=== PATIENT | female | born 1995 | race Caucasian/White ===

== ENCOUNTER 2025-09-27 00:45 | Inpatient (IN) | payer OTHER, SELFPAY ==
[2025-09-26 20:50] VITALS: BP 129/73
--- NOTE | 2025-09-26 22:06 | ED.GENMED ---
History of Present Illness
General
Chief Complaint: Fall
Source: patient
Exam Limitations: none
Time Seen by Provider: 09/26/25 21:58
Nursing documentation reviewed up to this point in time: agreed with
History of Present Illness
History of Present Illness:
SEE mdm
Phy Exam
Physical Exam
Physical Exam:
SEE mdm
Course
Orders/Labs/Results
Orders:
Orders
09/26/25 20:56
CR Ankle - Left Min 3 Views Urgent
Reason For Exam: fall
Tib/Fib, Left 2 View [CR Leg Tibia/fibula Left 2 Vw] Urgent
Comment:
Reason For Exam: fall
09/26/25 22:06
Ketorolac [Toradol] 30 mg IV NOW STA
09/26/25 22:08
CT Lower Ext W/o Iv Cont Lt Urgent
Comment:
Reason For Exam: L tibial fx; includet he ankle, ortho request
09/26/25 23:01
HYDROmorphone [Dilaudid] 1 mg IV NOW STA
09/27/25 00:27
Admit/Transfer Patient As Directed
Co-Sign Provider:
Level of Care: Inpatient admission
Assign to:: Medical/Surgical
Physician / Group: Dr. Hayden, Ortho
Diagnosis: Displaced comminuted fracture of shaft of left tibia
Reason for Hospitalization: Displaced comminuted fracture of shaft of left tibia and surgery needed
Expected length of stay greater than two midnights?: Yes
ELOS- Estimated Length of Stay in days: 3
I certify the patient meets the requirements for IP care: Yes
09/27/25 00:28
PRN Pain Medication Management As Directed
May give lesser potent ordered pain med per pt: Yes
preference::
Protocol:: Medication orders for pain may be administered in a
manner that supports deferring to patient preference
when the pt is:
- Requesting an ordered lesser potent pain medication.
Least to most potent pain medications are defined
as: acetaminophen < NSAID < tramadol < opioids
(morphine, oxycodone, hydromorphone).
- Requesting a lesser dose of the same medication IF
ORDERED.
- Requesting a less intrusive route of administration
if both routes are prescribed by the provider (PO <
IV).
09/27/25 00:30
Code Status As Directed
Resuscitation Status: Full Code
09/27/25 00:56
HYDROmorphone [Dilaudid] 0.5 mg IV Q3HPRN PRN
09/27/25 01:35
0.9% Sodium Chloride 1000 ml [Nss] 1,000 ml IV 80 mls/hr
Acetaminophen [Tylenol] 650 mg PO Q4HPRN PRN
Bisacodyl [Dulcolax] 10 mg RECTAL [id number] PRN
Docusate Sodium [Colace] 100 mg PO BID PRN
Docusate W/Senna [Senokot-S] 1 tablet PO BIDPRN PRN
HYDROmorphone [Dilaudid] 0.25 mg IV Q3HPRN PRN
Polyethylene Glycol Powder [Miralax] 17 grams PO DAILYPRN PRN
09/27/25 01:35
Activity As Directed
Activity Level: As Tolerated
Intake/ Output As Directed
Frequency: Per unit guidelines
Pneumatic Compression Sleeves As Directed
Type: Knee high
Vital Signs As Directed
Frequency: Per unit guidelines
DX Deep Vein Thrombosis Video Routine
09/27/25 06:00
EKG [Electrocardiogram (*1)] IN AM
Reason for Study: Other
Other Reason for Exam: Pre op
NPO
Allow oral meds: Yes
Allow clear liquids: No
Basic Metabolic Panel IN AM
Complete Blood Count/No Diff IN AM
09/27/25 18:00
Enoxaparin Sodium [Lovenox] 30 mg SC QPM
09/27/25 20:00
Sennosides [Senokot] 17.2 mg PO BID
Vital Signs
Initial and Last Documented VS:
Initial Vital Signs
Temp Pulse Resp BP Pulse Ox
36.9 C 102 22 129/73 99
09/26/25 20:50 09/26/25 20:50 09/26/25 20:50 09/26/25 20:50 09/26/25 20:50
Last Documented Vital Signs
Temp Pulse Resp BP Pulse Ox
36.9 C 114 24 131/71 95
09/26/25 20:50 09/27/25 01:15 09/27/25 01:15 09/27/25 01:00 09/27/25 00:30
MDM/Problems Addressed
Differential Diagnosis Includes:
see MDM
MDM/Problems Addressed:
Note:
CHIEF COMPLAINT(S)
Severe leg pain following a fall.
HISTORY OF PRESENT ILLNESS
The patient 30 y/o M to F transgender patient
mechanical fall presented with severe pain in the lower leg following a fall. The fall occurred when the patient slipped on ice. pt was unable to weight bear
no head strike
no other injuries
says she slipped on ice
nothing taken for pain
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
[employer]
The patient has a history of drug abuse but has been clean. The patient expressed concern about compromising their sobriety with narcotic medications and preferred to manage pain with non-narcotic options.
MEDICATIONS
The patient agreed to receive intravenous Toradol, a non-narcotic medication similar to ibuprofen, for pain management.
REVIEW OF SYSTEMS
- Musculoskeletal: Severe pain and multiple fractures of the tibia following fall.
PHYSICAL EXAM
- GENERAL: Alert , uncomfortable
HEAD: NCAT
CV: 2+ DP PULSES B/L
NEUROLOGICAL: Alert and oriented, no focal neuro deficits, , 5/5 strength, sensation intact, unable to ambulate
SKIN: Warm and dry,
MUSCULOSKELETAL: Slight deformity of the anterior tibial region, no tenting of the skin, normal pulse, can wiggle toes, severe pain with movement of the ankle
PSYCH: Normal and appropriate interaction.
- Nursing notes reviewed and vital signs reviewed.
PLAN
The initial plan is to manage pain with intravenous Toradol. Consultation with the reproduction specialist is ongoing to determine the next steps, including potential surgical intervention.
DIFFERENTIAL DIAGNOSIS
The Differential Diagnosis includes, in no particular order and is not limited to:
1. Tibial fracture
2. Fibular fracture
3. Ankle fracture
4. Ligamentous injuries
5. Soft tissue injury
6. Contusion
7. Compartment syndrome
8. Osteomyelitis
9. Sprain
10. Tendon injury
CARE-UPDATE
09/26/25 - 22:45
The orthopedist recommended a CT scan to assess if the fracture extends into the ankle joint. If the fracture does involve the ankle joint, there may be a need to transfer the patient to another hospital for more complex surgery. [place] is the
closest option for such a transfer, although [place] is also a possibility. Pain management has been addressed with IV medications, and the patient will continue to be monitored here as there�s no immediate need for transfer. Admission for further
observation is planned. Treatment will include pain management and consideration of the need for a splint.
CARE-UPDATE
09/26/25 - 23:[address] confirmed the fracture does not involve the ankle, allowing for surgery to proceed here tomorrow. Orthopedist recommended splinting at 90 degrees, which will be performed after increasing pain management. The patient has been accepted to the
orthopedic service, and house staff has been contacted for necessary orders.
I placed the splint on the patient's left leg, sugar-tong and a posterior, neurovascularly intact, tolerated well
*Pulse Oximetry
SaO2: 99
Oxygen Mode of Delivery: Room air
Patient hypoxic: no (95)
*Critical Care Note
Total Time (30-74mins, 75-104mins- exclusive of procedures): Not Applicable
ED Attending Note
-
Portions of this chart may have been created with voice recognition software.� Occasional wrong word or��sound alike� substitutions may have occurred due to the inherent limitations of voice recognition software.
Discharge Plan
Departure
Patient Disposition: Admit
Date of Disposition: 09/26/25
Time of Disposition: 23:02
Admit to: Med/Surg
Admit to doctor: aimee
Presentation/result/management discussed w/ accepting MD/DO: aimee
Condition: Fair
Covid-19: Not Applicable
Discharge Problem:
Displaced comminuted fracture of shaft of left tibia
Interventions
Interventions:
*General Assessment Last Done: 09/26/25 20:50
*Neglect/Abuse Screening Last Done: 09/26/25 20:50
*ED COVID-19 Vaccine History Last Done: 09/27/25 01:40
*ED Influenza Vaccine History Last Done: 09/26/25 20:50
[facility] Fall Risk Assessment Tool Last Done: 09/26/25 23:21
*Risk Screen - Suicide (C-SSRS) Last Done: 09/26/25 20:50
*Nursing Disposition Last Done: 09/27/25 01:40
ED-Musculoskeletal Assessment Last Done: 09/26/25 23:22
ED- Neurological Assessment Last Done: 09/26/25 23:22
ED-Skin Assessment Last Done: 09/26/25 23:22
Discharge Date and Time
Discharge Date/Time: 09/27/25 01:40
[2025-09-26] MEDS: TORADOL 30 MG IV (22:37)
[2025-09-26] MEDS: DILAUDID 1 MG IV (23:12)
[2025-09-26 23:17] VITALS: BP 122/63
[2025-09-27] VITALS (10 sets, daily range): BP systolic 120–140; BP diastolic 71–78
--- NOTE | 2025-09-27 00:05 | HPS.HSE ---
Family Physician
-
Family Physician: * NONE
Chief Complaint
-
LT leg pain
History of Present Illness
a 30 years old transgender female currently on hormonal therapy ( progesterone and estradiol). Patient is present to ER after fall with LT lower leg pain. She slipped on ice and landed on her LT side and could not move or bear weight on the LT side,
no other injuries noted. Denies hitting the head, loss of conscious, nausea, vomiting, denies SOB, chest pain, or any other symptoms.
-Patient has medical history of drug abuse last use 8 years ago.
-Patient with past surgical history of breast implant 2019, Chondrolaryngoplasty, and Glottoplasty 2022.
Medical History
Past Medical History
Past Medical History: Reports Psychiatric (anxiety/depression )
Past Surgical History: Reports Other (breast implant 2019, Chondrolaryngoplasty, and Glottoplasty 2022. )
Social History
Tobacco: Former Smoker
Alcohol: Former
Drug: Former User (8 years ago)
Living: With Family
Employment: Employed
Family History
Family History: Not pertinent
Allergies / Home Medications
Allergies reflects when Allergies were last updated in [facility].
Home Medications with original date entered in [facility]
Allergy/Medication List:
Patient Allergies
Allergy/AdvReac Type Severity Reaction Status Date / Time
No Known Allergies Allergy Verified 09/26/25 20:56
Home Medications Table - record
�Medication �Instructions �Recorded �Confirmed
citalopram 20 mg tablet 20 mg PO DAILY 09/27/25 09/27/25
Review of Systems
-
Respiratory: Reports No Symptoms
Cardiac: Reports No Symptoms
Musculoskeletal: Reports Other (swelling/pain of the LL leg )
Physical Exam
Vital Signs
Vital Signs
Temp Pulse Resp BP Pulse Ox
98.4 F 103 20 122/63 100
09/26/25 20:50 09/26/25 23:17 09/26/25 23:17 09/26/25 23:17 09/26/25 23:17
Physical Exam
Respiratory: Clear
Cardiac: Regular Rhythm
GI: Soft
Musculoskeletal: Other (Deformed, swelling of LT tibia )
Impression/Plan
-
Ankle x-ray shows a comminuted and mildly displaced distal tibial fracture with posterior and medial displacement of the dominant distal fracture fragment. There is no definite extension to the articular surface.
Mildly displaced oblique fracture through the distal fibula extending through the level of the syndesmosis.
Tibia/Fibula x-ray shows Redemonstration of the comminuted and displaced distal metadiaphyseal tibial fracture as well as the oblique distal fibular fracture. There is no evidence of proximal fracture.
Lower extremity CT shows highly comminuted and mildly displaced fracture of the distal tibial diaphysis and metaphysis which extends to the articular surface of the distal tibia. There is an additional mildly displaced oblique distal fibular
fracture which extends to the level of the syndesmosis.
IMPRESSION:
Displaced comminuted fracture of shaft of left tibia
PLAN:
Admit/ Med-surg/ Dr. Hayden/ Ortho services.
NPO
analgesics as needed
IVF
DVT prophylaxis Lovenox sq
Code status Full code
[2025-09-27] MEDS: DILAUDID 0.5 MG IV ×6 (01:12→16:12)
--- NOTE | 2025-09-27 01:45 | PTCARENOTE ---
Pt arrived to 2S at 0135 from ED. Pt transferred safely from stretcher to bed. Pt A&Ox3, VSS. Admission assessment complete. IVF initiated per order. Reviewed plan of care with pt, all questions answered. Pt oriented to room, call bernal within reach,
bed locked in lowest position, care ongoing.
[2025-09-27] MEDS: NSS 1000 IV ×2 (02:15→14:30)
[2025-09-27] MEDS: TYLENOL 650 MG PO (03:25)
[2025-09-27 07:38] LABS: Hematocrit 37.0 % (37.0-47.0); Hemoglobin 13.0 g/dL (12.0-16.0); Mean Corp Hgb Conc. 35.1 g/dL (33.0-37.0); Mean Corpuscular Volume 86.9 fL (81.0-99.0); Platelet Count 230 10^3/uL (130-400); Red Cell Dist. Width 12.2 % (11.5-14.5)
[2025-09-27 08:03] LABS: Blood Urea Nitrogen 17 mg/dl (7-17); Calcium 8.8 mg/dl (8.4-10.2); Carbon Dioxide 26 mmol/L (22-30); Chloride 103 mmol/L (98-107); Glucose 94 mg/dl (70-99); Potassium 4.0 mmol/L (3.5-5.1); Sodium 135 mmol/L (135-145); eGFR > 60.00
[2025-09-27] MEDS: CELEXA 20 MG PO (08:24)
[2025-09-27] MEDS: ESTRACE 4 MG PO (08:24)
--- NOTE | 2025-09-27 08:34 | CON.ORTHO ---
Consultation
-
Date/Time Consultation Requested: 09/26/2025 @ Unkown Time
Date/Time Consultation Performed: 09/27/2025 @ 6:45 AM
Requesting Provider: [facility]
Performing Provider: Michael Hoyt PA-C for Dr. Hayden
Reason for Consultation: Left Distal Tibia and Fibula Fractures
Consultation - Orthopedics
History
Orthopedic Surgery Note
CC: Left Leg Pain x Thursday09/26/2025
HPI: The patient is a 30-year-old transgender female who presented to [facility] ED following a mechanical fall yesterday. She reports that she slipped on ice and landed on her left side. She reports hearing a 'snap' followed by immediate onset of pain
and inability to weight-bear on the left side. She denies head trauma, LOC, or any other injuries. She localizes her pain to the left lower leg. She was transported to [facility] ED via EMS where x-rays and CT scan were obtained demonstrating acute
comminuted and mildly displaced fractures of the distal tibia and fibula. She was placed into a splint and Orthopedic surgery was consulted for treatment recommendations moving forward.
PMH/PSH:
Past Medical History: Reports Psychiatric (anxiety/depression)
Past Surgical History: Reports Other (breast implant 2019, Chondrolaryngoplasty, and Glottoplasty 2022.)
Medications: Reviewed.
Family History: Family history was reviewed. Noncontributory.
Social history:
Tobacco: Former Smoker
Alcohol: Former
Drug: Former User (8 years ago)
Living: With Family
Employment: Employed
Exam
General appearance: Pleasant. No acute distress.
Head: Normocephalic/atraumatic
Nose: No lesions or discharge.
Skin: No obvious rashes or open wounds
Lungs: No audible wheezing, no cough or sputum production
Musculoskeletal:
LLE:
Physical examination of the left lower extremity reveals splint in place. Diffuse tenderness to palpation over the region of the distal tibia and fibula. Knee is nontender to palpation. She is able to wiggle her toes. Toes are pink and warm.
Capillary refill is less than 2 seconds. Sensation is intact to light touch distally.
Imaging:
X-rays:
CR Ankle - LEFT Min 3 Viewswas obtained at [facility] on 09/26/2025 and was made available for my review today.
Findings:
Bones - There is a comminuted and mildly displaced distal tibial fracture with mild posterior and medial displacement of the dominant distal fracture fragment. There is no definite extension to the articular surface. There is a mildly displaced
oblique fracture through the distal fibula extending through the level of the syndesmosis.
Ankle mortise - The ankle mortise is preserved.
Soft tissue - Mild soft tissue swelling.
Impression: There is a comminuted and mildly displaced distal tibial fracture with posterior and medial displacement of the dominant distal fracture fragment. There is no definite extension to the articular surface. Mildly displaced oblique fracture
through the distal fibula extending through the level of the syndesmosis.
CR Leg Tibia/Fibula 2 Vw was also obtained at [facility] on 09/26/2025 and was made available for my review today.
Findings:
Bones - Redemonstration of the comminuted and displaced distal tibial fracture involving the diaphysis metaphysis. There is no definite articular extension. Mildly displaced oblique fracture through the distal fibula. There is no evidence of
proximal tibial or fibular fracture.
Soft tissue - Mild soft tissue swelling along the ankle. No radiopaque foreign body.
Impression: Redemonstration of the comminuted and displaced distal metadiaphyseal tibial fracture as well as the oblique distal fibular fracture. There is no evidence of proximal fracture.
CR Lower Ext W/o Iv Cont LT was performed at [facility] on 09/26/2025 and was made available for my review today.
Findings: There is a highly comminuted and mildly displaced fracture of the distal tibial diaphysis which extends to the articular surface. There is a mildly displaced distal fibular fracture extending through the syndesmosis. There is mild adjacent
soft tissue swelling along the distal lower leg as well as the ankle. Small sclerotic focus within the cuboid and distal tibia which are likely benign bone islands. Evaluation of additional soft tissue structures such as tendons and ligaments is
limited by CT. Grossly, no abnormalities are seen.
Impression: Again seen is a highly comminuted and mildly displaced fracture of the distal tibial diaphysis and metaphysis which extends to the articular surface of the distal tibia. There is an additional mildly displaced oblique distal fibular
fracture which extends to the level of the syndesmosis.
Assessment: 30-year-old female with an acute comminuted and mildly displaced fracture of the LEFT distal tibia extending to the articular surface, with an additional LEFT mildly displaced oblique distal fibular fracture.
Plan: Unfortunately, the patient has sustained acute fractures of the LEFT distal tibia and fibula. Treatment options, including both nonoperative and operative approaches were discussed with the patient at length. Recommended operative fixation.
The risks, benefits, potential complications and expected post-operative course were reviewed. We will plan for ORIF LEFT distal tibia and fibula fractures under the direction of Dr. Hayden later today. Surgical and blood consents obtained and
placed on patient's chart. Ancef and irrigation on-call to OR. Patient will remain NPO. Remain NWB to LLE in splint. Encouraged ice therapy and strict elevation for edema control. She is to remain on bedrest for now. Continue with pain
medications as needed. T&S requested. Left lower extremity marked as the correct surgical extremity. Hgb this AM 13.0. Please HOLD Lovenox for OR today. Orthopedic surgery will continue to follow along.
Allergies / Home Medications
Allergy/AdvReac Type Severity Reaction Status Date / Time
No Known Allergies Allergy Verified 09/26/25 20:56
�Medication �Instructions �Recorded
citalopram 20 mg tablet 20 mg PO DAILY 09/27/25
estradiol 4 PO DAILY 09/27/25
progesterone 200 mg 09/27/25
spironolactone 100 mg tablet 100 mg PO BID 09/27/25
Vital Signs / Lab Results
Temp Pulse Resp BP Pulse Ox
99.2 F 89 16 132/78 96
09/27/25 07:25 09/27/25 07:25 09/27/25 07:25 09/27/25 07:25 09/27/25 07:25
09/27/25 06:51
09/27/25 06:51
--- NOTE | 2025-09-27 10:40 | CM ---
OR today for ORIF tibia/fibula fracture. Initial assessment completed with patient who lives alone in a 3rd floor apartment in a building with no elevator, 3 steps to enter building. [employer] patient was independent in ADL's and ambulation, drives. No
DME. No in-home services. No HC-POA. No VA benefits. Has had an inpatient psychiatric hospitalization years ago. No PCP. Pharmacy is [facility] in [facility]. Discharge POC: Await therapy evaluation. Patient will stay at parents home on 1st
floor until able to be self-sufficient.
[2025-09-27] MEDS: ALDACTONE 100 MG PO (11:32)
[2025-09-27] MEDS: DILAUDID 0.25 MG IV ×2 (22:41→22:58)
--- NOTE | 2025-09-27 22:52 | W.IMMPOSTOP ---
Surgical Immed Post Op Note
-
Primary Surgeon: Neno Hayden MD
Assisting Surgeon:
Pre-op Diagnosis: left pilon fracture
Post-op Diagnosis: left pilon fracture, syndesmotic disruption
Procedure Performed: open reduction internal fixation left tibia and fibula, syndesmotic fixation
Anesthesia Type: spinal, general
Specimen / Cultures: none
Estimated Blood Loss: 50mL
Complications: none apparent
Operative Findings: comminution of tibia with free posterolateral fragment at proximal fracture line, widening of medial clear space with external rotation stress,
Implants: Ilfeld AxSOS 3 4mm distal medial tibial and distal fibula plates
Tourniquet time: 120 minutes @ 250 mm Hg
--- NOTE | 2025-09-27 23:20 | PTCARENOTE ---
Pt arrived to 2S at 2320 s/p open reduction internal fixation left tibia and fibula, syndesmotic fixation. Spinal and general, EBL 50. Pt A&Ox3, VSS. Pain medication administered, see MAR. Reviewed plan of care with pt, all questions answered. Pt
oriented to room, call bernal within reach, bed locked in lowest position, care ongoing.
[2025-09-28] VITALS (9 sets, daily range): BP systolic 101–138; BP diastolic 59–74; PULSE 80
[2025-09-28] MEDS: ROXICODONE 10 MG PO ×3 (00:13→20:56)
[2025-09-28] MEDS: SENOKOT PO (00:29)
[2025-09-28] MEDS: ESTRACE PO (00:29)
[2025-09-28] MEDS: ALDACTONE PO (00:29)
[2025-09-28] MEDS: DILAUDID 0.5 MG IV ×5 (01:17→23:50)
[2025-09-28] MEDS: ANCEF 5 IV ×2 (01:18→09:46)
--- NOTE | 2025-09-28 06:31 | W.PN.ORTHO ---
Addendum entered and electronically signed by Neno Hayden MD 09/28/25 08:34:
Upon disharge the patient will be prescribed aspiring 325mg for DVT prophylaxis
Original Note:
Today's Communication / Plan
-
30F POD 1 ORIF Left tibia and fibula, syndesmotic fixation 09/27/[address] Hayden
- NWB LLE in splint
- PT/OT/discharge planning
- Maintain splint/dressings until first post-operative appointment in 2 weeks
- DVT Prophylaxis: Lovenox 40mg SQ QPM ordered
- Diet and pain regimen ordered
- Ice therapy and strict elevation for edema control
- Outpatient follow up 2 weeks date of surgery with Dr. Hayden for clinical exam and radiographs. Orthopedic surgery will continue to follow
Assessment
.
Distal Motor Intact: Yes
Dressing:
Splint intact to LLE; clean, dry and intact.
Able to wiggle toes. Capillary refill is < 2 seconds. Sensation intact to light touch distally.
Assessment:
POD #1 ORIF left tibia and fibula, syndesmotic fixation 09/27/[address] Hayden.
Plan
.
Surgery / Date: ORIF Left Tibia & Fibula 09/27/2025 w/ Dr. Hayden
DVT Prophylaxis: Lovenox
Activity:
Out of bed.
PT/OT.
NWB LLE in splint.
Discharge Plan: Other
Discharge Information:
Appreciate CM.
Subjective
.
.:
Patient resting comfortably in bed. Reports pain to left lower extremity. Denies any other acute complaints or concerns at this time.
Vital Signs and Labs
.
Vital Signs and Labs:
Temp Pulse Resp BP Pulse Ox
98.2 F 90 16 105/63 95
09/28/25 03:12 09/28/25 03:12 09/28/25 03:12 09/28/25 03:12 09/28/25 03:12
[2025-09-28 07:51] LABS: Hematocrit 31.5 % (37.0-47.0); Hemoglobin 11.3 g/dL (12.0-16.0)
[2025-09-28 08:00] LABS: Blood Urea Nitrogen 12 mg/dl (7-17); Calcium 8.5 mg/dl (8.4-10.2); Carbon Dioxide 27 mmol/L (22-30); Chloride 103 mmol/L (98-107); Estimated Creatinine Clearance > 125 ml/min; Glucose 133 mg/dl (70-99); Potassium 4.4 mmol/L (3.5-5.1); Sodium 132 mmol/L (135-145); eGFR > 60.00
--- NOTE | 2025-09-28 08:19 | OR.RPT ---
Operative Report
Operative Report
Operative Report:
Patient: Leigha Diehl
: 1995

Date of procedure: 09/27/2025
Primary Surgeon: Neno Hayden MD
Assisting Surgeon:
Pre-op Diagnosis: left pilon fracture
Post-op Diagnosis: left pilon fracture, syndesmotic disruption
Procedure Performed: open reduction internal fixation left tibia and fibula, syndesmotic fixation
Description of procedure:
Patient is a 30-year-old female who sustained a ground-level fall after slipping on ice. Due to immediate pain and inability to ambulate she was brought by emergency services to [facility]. X-rays and CT demonstrated a displaced left pilon
and fibula fracture. Due to the risks of poor outcomes with nonoperative management patient is indicated for open reduction internal fixation of her left pilon fracture. Risk procedure including bleeding, infection, damage and restrictions, or
even were discussed. Understanding these risks wished to proceed with surgery
On the date of procedure the patient was identified in preoperative holding. The operative site was marked and consents were verified. Patient was brought to the operating room where consents and operative site were verified. Patient was placed
on the operating room table. Anesthesia was induced. Patient was prepped and draped in usual sterile fashion. An Esmarch was used to exsanguinate the left lower extremity and tourniquet was inflated to 250 mmHg.
An approximately 20 cm long incision was made over the medial aspect of the patient's tibia. Incision was made centered over the proximal comminuted tibia fracture. Hematoma was evacuated and the fracture edges were cleaned of soft tissue. The
fracture edges were reduced and held in place with pointed reduction clamps. There was a posterior lateral fragment of the tibia which was free-floating which could not be accessed and so was left slightly mall reduced. A 2 mm small fragment plate
was used to provisionally hold the reduction. In combination of traction and direct manipulation the rest of the fracture was reduced. A Oly AXSOS-3 distal medial tibial plate was secured in place with 4 mm nonlocking screws with excellent
fixation into the bone. 2-0 Vicryl sutures were used subcutaneously to close fascia and soft tissue over the plate. The skin was then closed with skin clips.
Attention was then turned to the fibula. An approximately 10 cm incision was made directly lateral over the distal fibula. Sharp dissection was made down to bone proximally, and care was taken to find the superficial peroneal nerve distally. This
was protected throughout the case. The fracture edges were cleared of soft tissue and were reduced using traction and pointed reduction clamps. A 3.5 mm lag screw was placed through the fracture in order to hold the fibula reduced. This had
excellent fixation. Next a Merna AxSOS-3 4 mm distal lateral fibular plate was selected and clamped in place over the fibula to hold the reduction. The fibular plate was secured to the bone using nonlocking screws of appropriate length.
Reduction and size of the plate were confirmed via fluoroscopy.
Attention was turned to the ankle joint. External rotation stress testing demonstrated that there was widening of the medial clear space, and so the decision was made to place 2 syndesmotic screws from the fibula into the tibia. After the screws
were placed the external rotation stress testing again was performed, which demonstrated no gapping of the medial clear space. The wound was copiously irrigated and 2-0 Vicryl sutures were used to close soft tissue subcutaneously over the plate.
The skin was closed with skin clips.
A dressing of Adaptic, sterile gauze, Webril and Arnaldo was applied to the left lower extremity. A posterior slab splint was used to secure the ankle at 90 degrees. Patient was awoken from anesthesia and brought to the postanesthesia care unit
without apparent complication.
Anesthesia Type: spinal, general
Specimen / Cultures: none
Estimated Blood Loss: 50mL
Complications: none apparent
Operative Findings: comminution of tibia with free posterolateral fragment at proximal fracture line, widening of medial clear space with external rotation stress
Implants: Merna AxSOS 3 4mm distal medial tibial and distal fibula plates, 3-hole small fragment plate
Tourniquet time: 120 minutes @ 250 mm Hg
Postoperatively the patient will be nonweightbearing on the left lower extremity with assistive device. She will use Lovenox on the hospital for DVT prophylaxis but will be switched to aspirin 325 mg daily upon discharge for 4 weeks. She will
follow-up in 2 weeks for repeat clinical and x-ray evaluation in my office
[2025-09-28] MEDS: ESTRACE 4 MG PO (09:45)
[2025-09-28] MEDS: TYLENOL 1000 MG PO ×4 (09:45→23:22)
[2025-09-28] MEDS: SENOKOT 17.2 MG PO ×2 (09:46→20:53)
[2025-09-28] MEDS: ALDACTONE 100 MG PO ×2 (09:46→20:53)
[2025-09-28] MEDS: COLACE 100 MG PO ×2 (09:46→20:53)
[2025-09-28] MEDS: CELEXA 20 MG PO (09:46)
--- NOTE | 2025-09-28 15:30 | CM ---
Addendum entered by Rachael Mae 09/28/25 17:50:
Correction: The names of the HH agencies below are incorrect. Please see [facility] for HH agency names
Addendum entered by Rachael Mae 09/28/25 17:21:
The following HH agency referrals were made per pt choices: [facility] [place]
Plan: DC to parents home with HH PT
Addendum entered by Rachael Mae 09/28/25 17:16:
Pt will travel by [facility] to:
[address] [place] [address]
[place] [address]
Estimated cost one-way: $615.00 (give or take $10)
Above information given to the pt to share with his mother. In addition, the phone number to call to pay for the trip was also given
Original Note:
Met with pt bedside. [Having post op pain
Reviewed PT rec and options of SNF vs o/p PT vs Home PT. Pt will be recovering at her parents home in [place]. Explained that we would coordinate with resources in that area.
She has chosen HH as her discharge plan.Medicare .gov 5 star report with HH resources provided. Will get referrals later today.
Scripts for RW and crutches requested from Dr. Hayden
Family is willing to private pay for an ambulance ride home.
[2025-09-28] MEDS: LOVENOX 40 MG SC (17:50)
[2025-09-28] MEDS: ESTRACE 2 MG PO (17:50)
[2025-09-29] MEDS: ROXICODONE 10 MG PO ×2 (06:19→20:05)
[2025-09-29] MEDS: TYLENOL PO (06:30)
--- NOTE | 2025-09-29 07:03 | W.PN.ORTHO ---
Today's Communication / Plan
-
30F POD 2 ORIF Left tibia and fibula, syndesmotic fixation 09/27/[address] Hayden
- NWB LLE in splint
- PT/OT/discharge planning. Appreciate CM; rx for rolling walker and crutches in chart
- Maintain splint/dressings until first post-operative appointment in 2 weeks
- DVT Prophylaxis: Lovenox 40mg SQ QPM ordered. Upon D/C, will transition to ASA 325mg once daily
- Diet and pain regimen ordered - Will try IV ketorolac as well; order placed
- Ice therapy and strict elevation for edema control
- Outpatient follow up 2 weeks date of surgery with Dr. Hayden for clinical exam and radiographs. Orthopedic surgery will continue to follow
Assessment
.
Distal Motor Intact: Yes
Dressing:
Splint intact to LLE; clean, dry and intact.
Able to wiggle toes. Capillary refill is < 2 seconds. Sensation intact to light touch distally.
Assessment:
POD #2 ORIF left tibia and fibula, syndesmotic fixation 09/27/[address] Hayden.
Plan
.
Surgery / Date: ORIF Left Tibia & Fibula 09/27/2025 w/ Dr. Hayden
DVT Prophylaxis: Lovenox
Activity:
Out of bed.
PT/OT.
NWB LLE in splint.
Discharge Plan: Home
Discharge Information:
Appreciate CM. Scripts for rolling walker and crutches in patient's chart.
Subjective
.
.:
Patient resting comfortably in bed. Reports pain to left lower extremity, marginally improved from yesterday. Denies any other acute complaints or concerns at this time.
Vital Signs and Labs
.
Vital Signs and Labs:
Lab Results
09/28/25 07:22
09/28/25 07:22
Temp Pulse Resp BP Pulse Ox
99.2 F 93 16 113/66 97
09/28/25 23:30 09/28/25 23:30 09/28/25 23:30 09/28/25 23:30 09/28/25 23:30
[2025-09-29 07:40] VITALS: BP 109/61
[2025-09-29] MEDS: CELEXA 20 MG PO (08:24)
[2025-09-29] MEDS: SENOKOT 17.2 MG PO ×2 (08:24→20:05)
[2025-09-29] MEDS: TORADOL 15 MG IV ×3 (08:24→18:34)
[2025-09-29] MEDS: COLACE 100 MG PO ×2 (08:24→20:05)
[2025-09-29] MEDS: ALDACTONE 100 MG PO ×2 (08:24→20:05)
[2025-09-29] MEDS: ESTRACE 4 MG PO (08:25)
[2025-09-29] MEDS: TYLENOL 1000 MG PO ×2 (13:14→18:31)
--- NOTE | 2025-09-29 15:21 | CM ---
POD#2, open reduction internal fixation left tibia and fibula, syndesmotic fixation. NWB LLE.
Patient will discharge to his parents home when medically cleared.
[address]
[place] [address]
[facility] will transport via ambulance. Parents will pay estimated cost one-way: $615.00. They have [facility] # to pay.
Scripts for RW and crutches placed in chart.
Needs RN, PT/OT. Referrals previously forwarded. [facility] is interested but not accepted yet.
[2025-09-29 15:45] VITALS: BP 102/61
[2025-09-29] MEDS: ESTRACE 2 MG PO (18:31)
[2025-09-29] MEDS: LOVENOX 40 MG SC (18:34)
[2025-09-29] MEDS: MIRALAX 17 GRAMS PO (20:06)
[2025-09-29 23:23] VITALS: BP 117/65
[2025-09-30] MEDS: TYLENOL 1000 MG PO ×3 (00:10→12:21)
[2025-09-30] MEDS: TORADOL 15 MG IV (00:11)
[2025-09-30 08:07] VITALS: BP 108/57
[2025-09-30] MEDS: COLACE 100 MG PO (09:12)
[2025-09-30] MEDS: ALDACTONE 100 MG PO (09:12)
[2025-09-30] MEDS: CELEXA 20 MG PO (09:12)
[2025-09-30] MEDS: ESTRACE 4 MG PO (09:13)
[2025-09-30] MEDS: SENOKOT 17.2 MG PO (09:13)
--- NOTE | 2025-09-30 12:37 | CM ---
Addendum entered by Florecita Hart 09/30/25 13:29:
Ambulance molded goods spot picker scheduled @ 1700; mother notified; she was instructed to contact [facility] and provide payment information
Mother's contact information and home address sent to [facility] via [facility]
Addendum entered by Florecita Hart 09/30/25 13:13:
spoke with mother, Kathya, # [phone]; she confirmed [facility]
Reported to mother that home health agency referral was accepted by [facility]; phone [phone]; also reported to that Leigha ambulated today w/ rolling walker; and that per Attending Leigha will transition to crutches
Original Note:
Met with patient at bedside; informed that Home Health/PT referral was accepted by [facility]; phone [phone];
patient informed of co-pay $65.00 per visit
Parents home address: [address] [place] [address]
[facility] will transport via ambulance. Parents will pay estimated cost one-way: $615.00. They have [facility] # to provide payment information
[facility]

Plan: Discharge [place] [address] when cleared to go; via ambulance; and home PT services
--- NOTE | 2025-09-30 13:10 | W.PN.ORTHO ---
Today's Communication / Plan
-
30F POD 3 ORIF Left tibia and fibula, syndesmotic fixation 09/27/[address] Hayden
- NWB LLE in splint
- PT/OT/discharge planning. Appreciate CM; Rx for rolling walker and crutches in chart
- Maintain splint/dressings until first post-operative appointment in 2 weeks
- DVT Prophylaxis: Lovenox 40mg SQ QPM ordered. Upon D/C, will transition to ASA 325mg once daily
- Diet and pain regimen ordered. She reports large improvements with her pain. Rx for Oxycodone and ASA sent to pharmacy in [employer] through [facility]
- Ice therapy and strict elevation for edema control
- Outpatient follow up 2 weeks date of surgery with Dr. Hayden for clinical exam and radiographs. Discharge order placed; discussed with RN and CM.
Assessment
.
Distal Motor Intact: Yes
Dressing:
Splint intact to LLE; clean, dry and intact.
Able to wiggle toes. Capillary refill is < 2 seconds. Sensation intact to light touch distally.
Assessment:
POD #3 ORIF left tibia and fibula, syndesmotic fixation 09/27/[address] Hayden.
Plan
.
Surgery / Date: ORIF Left Tibia & Fibula 09/27/2025 w/ Dr. Hayden
DVT Prophylaxis: Aspirin (Transitioning to ASA 325mg once daily upon D/C. ) and Lovenox
Activity:
Out of bed.
PT/OT.
NWB LLE in splint.
Discharge Plan: Home
Discharge Information:
Appreciate CM.
Subjective
.
.:
Patient resting comfortably in bedside chair. She reports that she did well today with PT/OT. She reports significant improvements with her pain. She denies any other acute complaints or concerns at this time.
Vital Signs and Labs
.
Vital Signs and Labs:
Lab Results
09/28/25 07:22
09/28/25 07:22
Temp Pulse Resp BP Pulse Ox
98.5 F 81 16 108/57 98
09/30/25 08:07 09/30/25 08:07 09/30/25 08:07 09/30/25 08:07 09/30/25 08:07
[2025-09-30 13:16] VITALS: O2SAT 98
--- NOTE | 2025-09-30 13:33 | W.DS.TRANS ---
DC Summary - Hris Coordinator
-
Discharge Instructions:
Dictation #: [id number]
Discharge Diagnosis/Procedures ORIF Left Tibia and Fibula, Syndesmotic Fixation
Diet As tolerated
Activity Do not bear weight L leg
Additional Activity NWB LLE in Splint.
Driving Restrictions Not until seen by your Dr
Bathing Restrictions OK to bathe. Keep LLE splint clean and dry.
Others Tests N/A
Other Services PT
Instructions:
Stand-Alone Forms:
Changes to Home Medications: No
Discharge Medications:
DC Medications w/original date entered in [employer]
citalopram 20 mg tablet 20 mg PO DAILY Mental Health/Anxiety 09/27/25
estradiol 4 PO DAILY HORMONE 09/27/25
progesterone 200 mg HORMONE 09/27/25
spironolactone 100 mg tablet 100 mg PO BID ANDROGENIC 09/27/25
aspirin 325 mg tablet 325 mg PO DAILY Prevent Blood Clots #30 tabs 09/29/25
oxycodone 5 mg tablet 5 mg PO Q6H PRN Pain #30 tabs 09/29/25
Home Medication Changes
Pending Results: No
Total time spent discharging patient (in min): 30 Minutes
[2025-09-30 15:37] VITALS: BP 102/69
[2025-09-30] MEDS: ESTRACE 2 MG PO (17:03)
[2025-09-30] MEDS: LOVENOX 40 MG SC (17:04)
== END 2025-09-30 17:10 | disposition home health service (06) | DRG 494 ==
LOC: 2 SOUTH 00:45
PROVIDERS: Nurse Practitioner Family; ADMITTING PHYSICIAN Student in an Organized Health Care Education/Training Program; EMERGENCY PHYSICIAN Student in an Organized Health Care Education/Training Program
PROC: 0QSK04Z Reposition Left Fibula with Internal Fixation Device, Open Approach (ICD-10-PCS; 2025-09-28)
PROC: 0QSH04Z Reposition Left Tibia with Internal Fixation Device, Open Approach (ICD-10-PCS; 2025-09-28)
DX: S82.872A Displaced pilon fracture of left tibia, initial encounter for closed fracture (principal); S82.832A Other fracture of upper and lower end of left fibula, initial encounter for closed fracture; Z79.890 Hormone replacement therapy; W00.0XXA Fall on same level due to ice and snow, initial encounter; Z98.82 Breast implant status; Z87.891 Personal history of nicotine dependence; F32.A Depression, unspecified; F41.9 Anxiety disorder, unspecified; F15.11 Other stimulant abuse, in remission; Z79.899 Other long term (current) drug therapy
CPT/HCPCS: 29515; 73590; 73600; 73610; 73700; 76000; 80048; 85014; 85018; 85027; 86850; 86900; 86901; 93005; 96374; 96375; 97116; 97162; 97530; 99285